=== PATIENT | female | born 1950 | race Hispanic/Latino ===

== ENCOUNTER 2017-06-21 05:59 | Day surgery (SDC) | payer OTHER ==
[2017-06-19 12:27] LABS: BASOPHILS % (AUTO) 1.1 % (0.0-5.0); EOSINOPHILS % (AUTO) 1.6 % (0.0-8.0); LYMPHOCYTES % (AUTO) 24.3 % (21.0-51.0); MEAN CORPUSCULAR HEMOGLOBIN 32.4 pg (27.0-33.0); MEAN CORPUSCULAR HGB CONC 35.7 g/dL (32.0-36.0); MEAN CORPUSCULAR VOLUME 90.8 fL (79-99); MONOCYTES % (AUTO) 7.6 % (3.0-13.0); NEUTROPHILS % (AUTO) 65.4 % (40.0-77.0); PLATELET COUNT (AUTO) 232 K/uL (130-400); RED BLOOD CELL COUNT(AUTO) 3.75 MIL/uL (4.00-5.50); RED CELL DISTRIBUTION WIDTH 13.4 % (11.0-15.5); WHITE BLOOD COUNT (AUTO) 8.4 K/uL (4.8-10.8)
[2017-06-19 12:27] LABS: APPEARANCE,URINE Cloudy (CLEAR); BILIRUBIN,URINE Negative (NEGATIVE); COLOR,URINE Yellow (YELLOW); GLUCOSE, URINE (UA) Negative (NEGATIVE); KETONES,URINE Negative (NEGATIVE); LEUKOCYTE ESTERASE ,URINE Negative (NEGATIVE); NITRATE,URINE Negative (NEGATIVE); OCCULT BLOOD,URINE Negative (NEGATIVE); PROTEIN,URINE Negative (NEGATIVE); UROBILINOGEN,URINE 0.2 mg/dL (0.2-1.0)
[2017-06-19 12:33] LABS: POTASSIUM 4.2 mmol/L (3.5-5.1)
[2017-06-19 12:44] LABS: INR 0.95 (0.85-1.15); PARTIAL THROMBOPLASTIN TIME 25.5 SEC (26.3-35.5)
[2017-06-19 12:47] VITALS: BP 164/72
[2017-06-19 12:54] LABS: BACTERIA,URINE Rare /HPF (None Seen); RBC,URINE 0-1 /HPF (0-1); WBC,URINE 0-1 /HPF (0-1)
[2017-06-19 12:55] LABS: SQUAMOUS EPITHELIAL CELL,UR Few /LPF (0-2)
[~2017-06-21] VITALS: Ht 162.6 cm; Wt 69.2 kg
[2017-06-21] VITALS (12 sets, daily range): BP systolic 136–184; BP diastolic 52–83
[~2017-06-21 05:59] MED LIST: SODIUM CHLORIDE 0.9% 500ML 500 ML IV SCH
[2017-06-21] MEDS ORDERED: ISOVUE-370 50ML VIAL IV ONE (07:22)
[2017-06-21] MEDS ORDERED: NITROGLYCERIN 5 MG/ML 10 ML VIAL IV ONE (07:22)
[2017-06-21] MEDS ORDERED: IOPAMIDOL-370 100 ML VIAL IV ONE (07:22)
[2017-06-21] MEDS ORDERED: HEPARIN SODIUM 1000UNIT/ML 10ML VIAL ONE (07:22)
[2017-06-21] MEDS ORDERED: LIDOCAINE HCL 1% 20 ML VIAL ONE (07:23)
[2017-06-21] MEDS ORDERED: BIVALIRUDIN 250 MG/VIAL IV ONE (07:24)
[2017-06-21] MEDS ORDERED: ROSU40TA28 PO (07:44)
[2017-06-21] MEDS ORDERED: LOSA50TA37 PO (07:44)
[2017-06-21] MEDS ORDERED: FURO-152 PO (07:44)
[2017-06-21] MEDS ORDERED: METF500T6 PO (07:44)
[2017-06-21] MEDS ORDERED: ASPI-555 PO (07:44)
[2017-06-21] MEDS ORDERED: MIDAZOLAM HCL 1 MG/ML 2ML VIAL ONE (08:09)
[2017-06-21] MEDS ORDERED: LABETALOL HCL 5 MG/ML 20ML VIAL IV ONE (08:42)
[2017-06-21] MEDS ORDERED: SODIUM CHLORIDE 0.9% 1000ML 1,000 ML IV SCH (09:02)
[2017-06-21] MEDS ORDERED: ACETAMINOPHEN-CODEINE 300/30MG TAB PO PRN ×2 (09:15)
[2017-06-21] MEDS ORDERED: GLUCAGON 1MG KIT 1 MG ML IM PRN (09:15)
[2017-06-21] MEDS ORDERED: DEXTROSE 50%-WATER 50 ML DISP.SYRIN IV PRN (09:15)
[2017-06-21] MEDS ORDERED: CARV6.2579 PO (09:18)
[2017-06-21] MEDS ORDERED: LABETALOL 20 MG/4 ML DISP.SYRIN IV SCH (10:00)
[2017-06-21] MEDS ORDERED: LABETALOL HCL 5 MG/ML 20ML VIAL IV SCH (10:30)
[2017-06-21] MEDS ORDERED: INSULIN HUMULIN R 100 UNIT/ML 3ML SQ SCH (11:30)
== END 2017-06-21 13:50 | disposition home or self-care (01) ==
LOC: DAH 05:59
PROVIDERS: ATTEND Internal Medicine Cardiovascular Disease
DX: I25.10 Atherosclerotic heart disease of native coronary artery without angina pectoris (principal); Z95.1 Presence of aortocoronary bypass graft; I25.5 Ischemic cardiomyopathy; I34.0 Nonrheumatic mitral (valve) insufficiency; Z79.899 Other long term (current) drug therapy; I44.7 Left bundle-branch block, unspecified; E11.59 Type 2 diabetes mellitus with other circulatory complications; I11.0 Hypertensive heart disease with heart failure; I50.9 Heart failure, unspecified; J44.9 Chronic obstructive pulmonary disease, unspecified; Z90.49 Acquired absence of other specified parts of digestive tract
CPT/HCPCS: 36415; 71045; 80048; 81001; 82948 ×2; 85025; 85610; 85730; 93005; 93459; C1760; C1894; J1644; J3490 ×3; J7030; Q9967 ×2; J0583; J2250

== ENCOUNTER 2017-06-24 22:08 | Inpatient (IN) | payer OTHER ==
[~2017-06-24] VITALS: Ht 162.6 cm; Wt 67.8 kg
[~2017-06-24 22:08] MED LIST changes: +ASPI-555 PO; +CARV6.2579 PO; +FURO-152 PO; +LOSA50TA37 PO; +METF500T6 PO; +ROSU40TA28 PO; -SODIUM CHLORIDE 0.9% 500ML 500 ML IV SCH
[2017-06-24] MEDS ORDERED: ASPIRIN 325 MG TABLET ONE (22:27)
[2017-06-24 22:52] LABS: BASOPHILS % (AUTO) 0.9 % (0.0-5.0); EOSINOPHILS % (AUTO) 2.2 % (0.0-8.0); HEMATOCRIT 31.3 % (36-48); LYMPHOCYTES % (AUTO) 19.3 % (21.0-51.0); MEAN CORPUSCULAR HGB CONC 34.1 g/dL (32.0-36.0); MEAN CORPUSCULAR VOLUME 90.9 fL (79-99); MONOCYTES % (AUTO) 5.7 % (3.0-13.0); NEUTROPHILS % (AUTO) 71.9 % (40.0-77.0); PLATELET COUNT (AUTO) 206 K/uL (130-400); RED BLOOD CELL COUNT(AUTO) 3.45 MIL/uL (4.00-5.50); RED CELL DISTRIBUTION WIDTH 13.5 % (11.0-15.5); WHITE BLOOD COUNT (AUTO) 11.1 K/uL (4.8-10.8)
[2017-06-24 23:02] LABS: CREATININE 0.9 mg/dL (0.5-1.5); POTASSIUM 4.2 mmol/L (3.5-5.1)
[2017-06-24 23:15] LABS: ALBUMIN 3.3 g/dL (3.5-5.0); BILIRUBIN,TOTAL 0.3 mg/dL (0.2-1.0); CREATINE KINASE MB 1.2 ng/mL (0.5-3.6)
[2017-06-24 23:29] LABS: INR 0.95 (0.85-1.15); PARTIAL THROMBOPLASTIN TIME 25.7 SEC (26.3-35.5)
[2017-06-24] MEDS ORDERED: FUROSEMIDE 10 MG/ML 4ML VIAL ONE (23:34)
[2017-06-24] MEDS ORDERED: NITROGLYCERIN 1GM/1 INCH PACKET TD ONE (23:35)
[2017-06-25] MEDS ORDERED: ENOXAPARIN SODIUM 100 MG/1 ML SQ ONE (00:14)
[2017-06-25] MEDS ORDERED: LIDOCAINE HCL-MPF 1% 2ML VIAL IVP PRN (01:00)
[2017-06-25] MEDS ORDERED: POTASSIUM CHLORIDE 10% ELIXIR 20 MEQ/15 ML UDCUP PO PRN (01:00)
[2017-06-25] MEDS ORDERED: POTASSIUM CHLORIDE 20MEQ/100ML 100 ML IV PRN (01:00)
[2017-06-25] MEDS ORDERED: ACETAMINOPHEN 325 MG TAB PO PRN (01:30)
[2017-06-25] MEDS ORDERED: FAMOTIDINE 20MG TAB 20 MG TAB PO SCH (01:30)
[2017-06-25] MEDS ORDERED: ONDANSETRON HCL 4 MG/2 ML VIAL IVP PRN (01:30)
[2017-06-25 04:48] VITALS: BP 147/73
[2017-06-25] MEDS: INSULIN HUMULIN R 100 UNIT/ML 3ML SQ SCH ×4 (06:28→20:47)
[2017-06-25 07:14] LABS: CREATINE KINASE MB 0.6 ng/mL (0.5-3.6); POTASSIUM 3.9 mmol/L (3.5-5.1); TROPONIN I 0.25 ng/mL (0.00-0.06)
[2017-06-25 08:00] VITALS: BP 155/64
[2017-06-25] MEDS: ENOXAPARIN SODIUM 40 MG/0.4 ML SYRINGE SQ SCH ×2 (09:00→16:27)
[2017-06-25] MEDS: METFORMIN HCL 500 MG TABLET PO SCH ×3 (09:00→20:48)
[2017-06-25] MEDS ORDERED: LOSARTAN 50 MG TABLET PO SCH (09:00)
[2017-06-25] MEDS: ASPIRIN 81 MG EC TAB PO SCH (10:00)
[2017-06-25] MEDS: CETIRIZINE HCL 5 MG TABLET PO SCH (10:01)
[2017-06-25] MEDS: CARVEDILOL 6.25 MG TABLET PO SCH ×2 (10:01→20:48)
[2017-06-25 11:30] VITALS: BP 135/67
[2017-06-25] MEDS: FUROSEMIDE 10 MG/ML 4ML VIAL IV SCH (12:37)
[2017-06-25 16:00] VITALS: BP 132/58
[2017-06-25 19:51] VITALS: BP 116/56
[2017-06-25 23:30] VITALS: BP 147/67
[2017-06-26 03:50] VITALS: BP 123/51
[2017-06-26 04:30] LABS: HEMATOCRIT 31.9 % (36-48); MEAN CORPUSCULAR HEMOGLOBIN 31.7 pg (27.0-33.0); MEAN CORPUSCULAR HGB CONC 35.1 g/dL (32.0-36.0); MEAN CORPUSCULAR VOLUME 90.5 fL (79-99); NUCLEATED RED BLOOD CELLS 0.1 % (0.0-0.19); PLATELET COUNT (AUTO) 217 K/uL (130-400); RED BLOOD CELL COUNT(AUTO) 3.53 MIL/uL (4.00-5.50); RED CELL DISTRIBUTION WIDTH 13.4 % (11.0-15.5)
[2017-06-26 04:43] LABS: CREATININE 1.1 mg/dL (0.5-1.5); MAGNESIUM 1.7 mg/dL (1.80-2.40); POTASSIUM 3.8 mmol/L (3.5-5.1)
[2017-06-26] MEDS: POTASSIUM CHLORIDE 20 MEQ ERTAB PO PRN (05:26)
[2017-06-26] MEDS: INSULIN HUMULIN R 100 UNIT/ML 3ML SQ SCH ×4 (06:37→21:00)
[2017-06-26 07:47] VITALS: BP 148/69
[2017-06-26] MEDS ORDERED: ARTIFICAL TEARS SOL 15 ML OD PRN (08:00)
[2017-06-26] MEDS: WATER FOR INJECTION,STERILE 20 ML VIAL IJ SCH (08:30)
[2017-06-26] MEDS: CEFUROXIME SODIUM 1.5 GM VIAL IVP SCH (08:30)
[2017-06-26 08:48] LABS: CHOLESTEROL 176 mg/dL (<200); HDL CHOLESTEROL 63 mg/dL (35-85); LDL DIRECT 103 mg/dL (0-99); TRIGLYCERIDES 126 mg/dL (30-200)
[2017-06-26 08:57] LABS: HEMOGLOBIN A1C 7.2 % (4.0-6.0)
[2017-06-26] MEDS: METFORMIN HCL 500 MG TABLET PO SCH ×3 (09:15→21:07)
[2017-06-26] MEDS: CARVEDILOL 6.25 MG TABLET PO SCH (09:15)
[2017-06-26] MEDS: DIPHENHYDRAMINE HCL 25 MG CAPSULE PO SCH ×2 (09:15→23:38)
[2017-06-26] MEDS: ASPIRIN 81 MG EC TAB PO SCH (09:15)
[2017-06-26] MEDS: CETIRIZINE HCL 5 MG TABLET PO SCH (09:15)
[2017-06-26] MEDS: ENOXAPARIN SODIUM 40 MG/0.4 ML SYRINGE SQ SCH (09:16)
[2017-06-26] MEDS: FUROSEMIDE 10 MG/ML 4ML VIAL IV SCH (09:17)
[2017-06-26 11:36] VITALS: BP 129/58
[2017-06-26] MEDS: LOSARTAN 50 MG TABLET PO SCH (13:22)
[2017-06-26 16:57] VITALS: BP 136/51
[2017-06-26 19:00] VITALS: BP 137/63
[2017-06-27] VITALS (7 sets, daily range): BP systolic 123–141; BP diastolic 55–83
[2017-06-27 04:41] LABS: CREATININE 1.3 mg/dL (0.5-1.5); MAGNESIUM 1.7 mg/dL (1.80-2.40); POTASSIUM 3.7 mmol/L (3.5-5.1)
[2017-06-27 04:47] LABS: INR 0.95 (0.85-1.15); PARTIAL THROMBOPLASTIN TIME 26.5 SEC (26.3-35.5)
[2017-06-27 05:09] LABS: HEMATOCRIT 31.8 % (36-48); MEAN CORPUSCULAR HEMOGLOBIN 32.6 pg (27.0-33.0); MEAN CORPUSCULAR VOLUME 90.5 fL (79-99); PLATELET COUNT (AUTO) 217 K/uL (130-400); RED BLOOD CELL COUNT(AUTO) 3.52 MIL/uL (4.00-5.50); RED CELL DISTRIBUTION WIDTH 13.4 % (11.0-15.5); WHITE BLOOD COUNT (AUTO) 9.8 K/uL (4.8-10.8)
[2017-06-27] MEDS: INSULIN HUMULIN R 100 UNIT/ML 3ML SQ SCH ×4 (06:27→20:34)
[2017-06-27] MEDS ORDERED: CEFUROXIME 1.5GM+NS 100ML 100 ML IV SCH (06:30)
[2017-06-27 06:47] LABS: BAND NEUTROPHILS % (MANUAL) 3 % (0-2); BASOPHILS % (MANUAL) 1 % (0-2); EOSINOPHILS % (MANUAL) 1 % (1-6); LYMPHOCYTES % (MANUAL) 34 % (22-44); MONOCYTES % (MANUAL) 5 % (2-9); REACTIVE LYMPHOCYTES 2 % (0-0); SEGMENTED NEUTROPHILS % 54 % (40-70)
[2017-06-27 06:48] LABS: MAN.DIFF COMMENT-IMPRESSION MANUAL DIFFERENTIAL
[2017-06-27] MEDS: CEFUROXIME SODIUM 1.5 GM VIAL IVP SCH (08:30)
[2017-06-27] MEDS: WATER FOR INJECTION,STERILE 20 ML VIAL IJ SCH (08:30)
[2017-06-27] MEDS: ASPIRIN 81 MG EC TAB PO SCH (11:48)
[2017-06-27] MEDS: LOSARTAN 50 MG TABLET PO SCH (11:50)
[2017-06-27] MEDS: CETIRIZINE HCL 5 MG TABLET PO SCH (11:50)
[2017-06-27] MEDS: METFORMIN HCL 500 MG TABLET PO SCH ×3 (11:50→20:34)
[2017-06-27] MEDS: ENOXAPARIN SODIUM 40 MG/0.4 ML SYRINGE SQ SCH (11:51)
[2017-06-27] MEDS: FUROSEMIDE 10 MG/ML 4ML VIAL IV SCH (11:52)
[2017-06-27] MEDS ORDERED: MAGNESIUM 2GM PREMIX 50ML 50 ML IV SCH (14:30)
[2017-06-27] MEDS: POTASSIUM CHLORIDE 20 MEQ ERTAB PO PRN ×2 (15:59→19:16)
[2017-06-28 03:44] VITALS: BP 127/63
[2017-06-28 04:02] LABS: HEMATOCRIT 34.7 % (36-48); MEAN CORPUSCULAR HEMOGLOBIN 31.5 pg (27.0-33.0); MEAN CORPUSCULAR HGB CONC 34.8 g/dL (32.0-36.0); MEAN CORPUSCULAR VOLUME 90.5 fL (79-99); PLATELET COUNT (AUTO) 225 K/uL (130-400); RED BLOOD CELL COUNT(AUTO) 3.83 MIL/uL (4.00-5.50); RED CELL DISTRIBUTION WIDTH 13.3 % (11.0-15.5)
[2017-06-28 04:25] LABS: ALBUMIN 3.4 g/dL (3.5-5.0); BILIRUBIN,TOTAL 0.3 mg/dL (0.2-1.0); CREATININE 1.2 mg/dL (0.5-1.5); MAGNESIUM 2.3 mg/dL (1.80-2.40); POTASSIUM 4.5 mmol/L (3.5-5.1); TOTAL PROTEIN, SERUM 7.1 g/dL (6.0-8.3)
[2017-06-28] MEDS: INSULIN HUMULIN R 100 UNIT/ML 3ML SQ SCH ×3 (06:31→16:30)
[2017-06-28 08:00] VITALS: BP 123/56
[2017-06-28] MEDS: WATER FOR INJECTION,STERILE 20 ML VIAL IJ SCH (08:30)
[2017-06-28] MEDS: CEFUROXIME SODIUM 1.5 GM VIAL IVP SCH (08:30)
[2017-06-28] MEDS: CETIRIZINE HCL 5 MG TABLET PO SCH (10:21)
[2017-06-28] MEDS: LOSARTAN 50 MG TABLET PO SCH (10:21)
[2017-06-28] MEDS: FUROSEMIDE 10 MG/ML 4ML VIAL IV SCH (10:21)
[2017-06-28] MEDS: METFORMIN HCL 500 MG TABLET PO SCH ×2 (10:21→15:18)
[2017-06-28] MEDS: ASPIRIN 81 MG EC TAB PO SCH (10:21)
[2017-06-28] MEDS: ENOXAPARIN SODIUM 40 MG/0.4 ML SYRINGE SQ SCH (10:22)
[2017-06-28 12:00] VITALS: BP 118/54
[2017-06-28 16:00] VITALS: BP 129/65
[2017-06-28] MEDS ORDERED: CIPR-245 PO (16:06)
[2017-06-28] MEDS ORDERED: FURO40TA7 PO (16:06)
== END 2017-06-28 19:20 | disposition home or self-care (01) | DRG 291 ==
LOC: EDH 22:08 → EDHIP 23:53 → 2AH 06-25 04:38
PROVIDERS: ADMIT Internal Medicine Nephrology; ATTEND Internal Medicine Nephrology
DX: I11.0 Hypertensive heart disease with heart failure (principal); J96.00 Acute respiratory failure, unspecified whether with hypoxia or hypercapnia; K55.1 Chronic vascular disorders of intestine; E11.9 Type 2 diabetes mellitus without complications; E78.5 Hyperlipidemia, unspecified; F17.200 Nicotine dependence, unspecified, uncomplicated; I25.110 Atherosclerotic heart disease of native coronary artery with unstable angina pectoris; I25.5 Ischemic cardiomyopathy; I50.23 Acute on chronic systolic (congestive) heart failure; J44.9 Chronic obstructive pulmonary disease, unspecified; I44.7 Left bundle-branch block, unspecified; Z79.84 Long term (current) use of oral hypoglycemic drugs; Z79.899 Other long term (current) drug therapy; Z82.49 Family history of ischemic heart disease and other diseases of the circulatory system; Z88.8 Allergy status to other drugs, medicaments and biological substances
CPT/HCPCS: 36415; 71045; 74150; 76705; 80048; 80053; 80061; 81001; 82150; 82550; 82553; 82948; 83036; 83690; 83735; 83874; 83880; 84484; 85025; 85027; 85610; 85730; 86850; 86900; 86901; 86922; 93005; 93459; 93880; 94010; 99291; C1760; C1894; J0583; J1644; J1650; J1940; J2250; J3475; J3480; J3490; J7030; Q0163; Q9967

== ENCOUNTER 2017-07-02 06:24 | Inpatient (IN) | payer OTHER ==
[2017-07-01 12:15] LABS: BASOPHILS % (AUTO) 0.9 % (0.0-5.0); EOSINOPHILS % (AUTO) 2.9 % (0.0-8.0); LYMPHOCYTES % (AUTO) 19.9 % (21.0-51.0); MEAN CORPUSCULAR HEMOGLOBIN 31.3 pg (27.0-33.0); MEAN CORPUSCULAR HGB CONC 34.9 g/dL (32.0-36.0); MEAN CORPUSCULAR VOLUME 89.9 fL (79-99); MONOCYTES % (AUTO) 7.4 % (3.0-13.0); NEUTROPHILS % (AUTO) 68.9 % (40.0-77.0); PLATELET COUNT (AUTO) 270 K/uL (130-400); RED BLOOD CELL COUNT(AUTO) 3.89 MIL/uL (4.00-5.50); RED CELL DISTRIBUTION WIDTH 13.3 % (11.0-15.5); WHITE BLOOD COUNT (AUTO) 8.1 K/uL (4.8-10.8)
[2017-07-01 12:25] VITALS: BP 145/62
[2017-07-01 12:26] LABS: INR 0.98 (0.85-1.15); PARTIAL THROMBOPLASTIN TIME 26.3 SEC (26.3-35.5); PROTHROMBIN TIME 10.3 SEC (9.6-11.6)
[2017-07-01 12:29] LABS: ALBUMIN 3.9 g/dL (3.5-5.0); BILIRUBIN,TOTAL 0.3 mg/dL (0.2-1.0); CREATININE 1.5 mg/dL (0.5-1.5); POTASSIUM 4.3 mmol/L (3.5-5.1); TOTAL PROTEIN, SERUM 8.1 g/dL (6.0-8.3)
[2017-07-01] MEDS: CEFUROXIME SODIUM 1.5 GM VIAL IVP SCH (14:00)
[2017-07-02] VITALS (12 sets, daily range): BP systolic 86–155; BP diastolic 38–73
[~2017-07-02] VITALS: Ht 162.6 cm; Wt 74.7 kg
[~2017-07-02 06:24] MED LIST changes: -CARV6.2579 PO; +CIPR-245 PO; -FURO-152 PO; +FURO40TA7 PO; +WATER FOR INJECTION,STERILE 20 ML VIAL IJ SCH
[2017-07-02] MEDS ORDERED: SODIUM CHLORIDE 0.9% 1000ML 1,000 ML IV ONE ×2 (07:32→14:26)
[2017-07-02] MEDS ORDERED: PAPAVERINE HCL 30 MG/ML 2ML VIAL ONE (09:27)
[2017-07-02] MEDS ORDERED: OCTYL 2-CYANOACRYLATE 1 EACH TP ONE (09:27)
[2017-07-02] MEDS ORDERED: BACITRACIN 50,000 UNIT VIAL ONE (09:28)
[2017-07-02] MEDS ORDERED: ROCURONIUM BROMIDE 10MG/1ML 5ML VL ONE ×3 (09:35→15:03)
[2017-07-02] MEDS ORDERED: NITROGLYCERIN 50 MG/D5% WATER 1 BOT ONE (09:35)
[2017-07-02] MEDS ORDERED: EPINEPHRINE 1 MG/ML AMPULE ONE (10:25)
[2017-07-02] MEDS ORDERED: HEPARIN SODIUM 1000UNIT/ML 10ML VIAL ONE ×2 (10:25→10:41)
[2017-07-02] MEDS ORDERED: LIDOCAINE PF 2% 5ML ABBOJECT ONE (10:25)
[2017-07-02] MEDS ORDERED: PROTAMINE SULFATE 10 MG/ML 25ML VIAL IV ONE (10:25)
[2017-07-02] MEDS ORDERED: GLYCOPYRROLATE 0.2 MG/ML 5 ML VIAL ONE (10:25)
[2017-07-02] MEDS ORDERED: ESMOLOL HCL 10 MG/ML 10 ML VIAL ONE (10:25)
[2017-07-02] MEDS ORDERED: MILRINONE-D5W 20 MG/100 ML 100 ML IV ONE (10:25)
[2017-07-02] MEDS ORDERED: KETAMINE 50MG/ML SYRINGE 50 MG/ML DISP.SYRIN IV ONE (10:26)
[2017-07-02] MEDS ORDERED: AMINOCAPROIC ACID 250 MG/ML 20 ML VIAL IV ONE (10:26)
[2017-07-02] MEDS ORDERED: NOREPINEPHRINE BITARTRATE 1 MG/1 ML ML IV ONE (10:26)
[2017-07-02] MEDS ORDERED: PROPOFOL 10 MG/ML 20ML VIAL IV ONE (10:26)
[2017-07-02] MEDS ORDERED: MIDAZOLAM HCL 1 MG/ML 5ML VIAL ONE (10:26)
[2017-07-02] MEDS ORDERED: FENTANYL CITRATE PF 50 MCG/1 ML 5ML AMP IV ONE ×2 (10:29)
[2017-07-02] MEDS ORDERED: THROMBIN-JMI 5000 UNIT/VIAL TP ONE (10:40)
[2017-07-02] MEDS: CEFUROXIME SODIUM 1.5 GM VIAL IVP SCH (10:45)
[2017-07-02 10:56] LABS: ABG BASE EXCESS -1.9 mmol/L (-2.0-3.0); ABG HCO3 21.3 mmol/L (21.0-28.0); ABG OXYGEN SATURATION 98.7 % (95.0-99.0); ABG PCO2 31 mmHg (32-45)
[2017-07-02] MEDS ORDERED: FENTANYL CITRATE PF 50 MCG/1 ML 2ML VIAL ONE ×2 (11:14)
[2017-07-02 12:43] LABS: ABG BASE EXCESS -5.8 mmol/L (-2.0-3.0); ABG HCO3 19.3 mmol/L (21.0-28.0); ABG OXYGEN SATURATION 98.8 % (95.0-99.0); ABG PCO2 37 mmHg (32-45)
[2017-07-02] MEDS ORDERED: SODIUM BICARB 50MEQ 50ML VIAL ONE (12:44)
[2017-07-02] MEDS ORDERED: CEFUROXIME SODIUM 1.5 GM VIAL ONE (13:31)
[2017-07-02 13:49] LABS: ABG BASE EXCESS -4.8 mmol/L (-2.0-3.0); ABG HCO3 19.6 mmol/L (21.0-28.0); ABG OXYGEN SATURATION 98.9 % (95.0-99.0); ABG PCO2 34 mmHg (32-45)
[2017-07-02] MEDS ORDERED: SODIUM CHLORIDE 0.9% 500ML 500 ML IV SCH (14:43)
[2017-07-02] MEDS ORDERED: SODIUM CHLORIDE 0.9% 250 ML IV PRN (14:45)
[2017-07-02] MEDS ORDERED: ONDANSETRON HCL MDV 20ML 2 MG/ML VIAL IV PRN (14:45)
[2017-07-02] MEDS ORDERED: DEXTROSE 50%-WATER 50 ML DISP.SYRIN IV PRN (14:45)
[2017-07-02] MEDS ORDERED: CALCIUM GLUCONATE 1 GM in SODIUM CHLORIDE 0.9% 50 ML IV PRN (14:45)
[2017-07-02] MEDS ORDERED: ALBUMIN (HUMAN) 5% 250 ML IV PRN (14:45)
[2017-07-02] MEDS ORDERED: SODIUM CHLORIDE 0.9% 1000ML 1,000 ML IV SCH (14:45)
[2017-07-02] MEDS ORDERED: MORPHINE SULFATE 2 MG/ML 1ML SYG IV PRN (14:45)
[2017-07-02] MEDS ORDERED: GLUCAGON 1MG KIT 1 MG ML IM PRN (14:45)
[2017-07-02] MEDS ORDERED: NOREPINEPHRINE 4MG/NS 250ML 250 ML IV PRN (14:45)
[2017-07-02] MEDS ORDERED: PROPOFOL 1000 MG/100 ML 100 ML IV PRN (14:45)
[2017-07-02] MEDS ORDERED: NITROGLYCERIN 50 MG/D5% WATER 250 BOT IV SCH (14:45)
[2017-07-02] MEDS ORDERED: EPINEPHRINE 2 MG in SODIUM CHLORIDE 0.9% 250 ML IV PRN (14:45)
[2017-07-02] MEDS ORDERED: ACETAMINOPHEN 650 MG SUPPOSITORY RC PRN (14:45)
[2017-07-02] MEDS ORDERED: ACETAMINOPHEN 325 MG TAB PO PRN (14:45)
[2017-07-02] MEDS ORDERED: POTASSIUM PHOS 15 mMOL+NS250ML 250 ML IV PRN (14:45)
[2017-07-02] MEDS ORDERED: SODIUM CHLORIDE 0.9% 10 ML VIAL IVP PRN (14:45)
[2017-07-02] MEDS ORDERED: MORPHINE SULFATE 4 MG/1ML SYG IV PRN (14:45)
[2017-07-02] MEDS ORDERED: SODIUM BICARB 50MEQ 50ML VIAL IV PRN (14:45)
[2017-07-02 14:57] LABS: ABG HCO3 18.2 mmol/L (21.0-28.0); ABG OXYGEN SATURATION 98.5 % (95.0-99.0); ABG PCO2 40 mmHg (32-45)
[2017-07-02] MEDS ORDERED: SODIUM BICARB 8.4% 50ML SYRINGE ONE (14:57)
[2017-07-02 15:43] LABS: ABG BASE EXCESS -1.5 mmol/L (-2.0-3.0); ABG HCO3 23.1 mmol/L (21.0-28.0); ABG OXYGEN SATURATION 98.4 % (95.0-99.0); ABG PCO2 38 mmHg (32-45)
[2017-07-02 15:48] LABS: HEMATOCRIT 27.6 % (36-48); MEAN CORPUSCULAR HEMOGLOBIN 30.5 pg (27.0-33.0); MEAN CORPUSCULAR HGB CONC 33.9 g/dL (32.0-36.0); PLATELET COUNT (AUTO) 203 K/uL (130-400); RED BLOOD CELL COUNT(AUTO) 3.07 MIL/uL (4.00-5.50); RED CELL DISTRIBUTION WIDTH 13.4 % (11.0-15.5); WHITE BLOOD COUNT (AUTO) 24.9 K/uL (4.8-10.8)
[2017-07-02 16:00] LABS: CREATININE 1.2 mg/dL (0.5-1.5); MAGNESIUM 1.3 mg/dL (1.80-2.40); PHOSPHORUS 4.6 mg/dL (2.5-4.9); POTASSIUM 3.3 mmol/L (3.5-5.1)
[2017-07-02] MEDS: POTASSIUM CHLORIDE 20MEQ/100ML 100 ML IV PRN ×2 (16:18→17:32)
[2017-07-02] MEDS: INSULIN REGULAR, HUMAN 3ML 100 UNIT in SODIUM CHLORIDE 0.9% 99 ML IV SCH ×2 (16:29)
[2017-07-02] MEDS: MAGNESIUM 2GM PREMIX 50ML 50 ML IV PRN (17:35)
[2017-07-02 20:19] LABS: ABG BASE EXCESS 3.2 mmol/L (-2.0-3.0); ABG HCO3 26.8 mmol/L (21.0-28.0); ABG OXYGEN SATURATION 98.1 % (95.0-99.0); ABG PCO2 37 mmHg (32-45)
[2017-07-02 20:56] LABS: CREATININE 1.3 mg/dL (0.5-1.5)
[2017-07-02] MEDS ORDERED: CEFUROXIME 1.5GM+NS 100ML 100 ML IV SCH (22:45)
[2017-07-02 22:53] LABS: ABG BASE EXCESS 4.1 mmol/L (-2.0-3.0); ABG HCO3 28.2 mmol/L (21.0-28.0); ABG OXYGEN SATURATION 98.9 % (95.0-99.0); ABG PCO2 40 mmHg (32-45)
[2017-07-03] VITALS (24 sets, daily range): BP systolic 89–143; BP diastolic 32–66
[2017-07-03 01:00] LABS: ABG BASE EXCESS 4.1 mmol/L (-2.0-3.0); ABG HCO3 29.3 mmol/L (21.0-28.0); ABG OXYGEN SATURATION 98.1 % (95.0-99.0); ABG PCO2 45 mmHg (32-45)
[2017-07-03] MEDS: CEFUROXIME SODIUM 1.5 GM VIAL IVP SCH ×2 (02:34→13:58)
[2017-07-03 04:48] LABS: HEMATOCRIT 24.7 % (36-48); MEAN CORPUSCULAR HEMOGLOBIN 32.2 pg (27.0-33.0); MEAN CORPUSCULAR HGB CONC 35.9 g/dL (32.0-36.0); MEAN CORPUSCULAR VOLUME 89.5 fL (79-99); PLATELET COUNT (AUTO) 180 K/uL (130-400); RED BLOOD CELL COUNT(AUTO) 2.76 MIL/uL (4.00-5.50); RED CELL DISTRIBUTION WIDTH 13.6 % (11.0-15.5); WHITE BLOOD COUNT (AUTO) 13.5 K/uL (4.8-10.8)
[2017-07-03 05:10] LABS: CREATININE 1.2 mg/dL (0.5-1.5); MAGNESIUM 1.8 mg/dL (1.80-2.40); PHOSPHORUS 3.1 mg/dL (2.5-4.9); POTASSIUM 3.8 mmol/L (3.5-5.1)
[2017-07-03] MEDS: POTASSIUM CHLORIDE 20MEQ/100ML 100 ML IV PRN ×2 (05:48→22:21)
[2017-07-03] MEDS: MAGNESIUM 2GM PREMIX 50ML 50 ML IV PRN (05:49)
[2017-07-03] MEDS: HYDROCODONE/ACETAMINOPHEN 5/325 MG TAB PO PRN ×3 (06:58→22:15)
[2017-07-03] MEDS: PANTOPRAZOLE SODIUM 40 MG TABLET.DR PO SCH (08:24)
[2017-07-03] MEDS ORDERED: LOSA25TA21 PO (09:30)
[2017-07-03] MEDS: SPIRONOLACTONE 25 MG TAB PO SCH ×2 (10:12→20:26)
[2017-07-03] MEDS: ATORVASTATIN CALCIUM 40 MG TABLET PO SCH (12:15)
[2017-07-03] MEDS: FUROSEMIDE 20 MG TABLET PO SCH ×2 (13:58→16:19)
[2017-07-03] MEDS: INSULIN REGULAR, HUMAN 3ML 100 UNIT in SODIUM CHLORIDE 0.9% 99 ML IV SCH ×2 (20:15)
[2017-07-03] MEDS: METOPROLOL TARTRATE 25 MG TAB PO SCH (20:26)
[2017-07-03] MEDS ORDERED: FUROSEMIDE 10 MG/ML 4ML VIAL IV SCH (21:30)
[2017-07-03 21:48] LABS: CREATININE 1.1 mg/dL (0.5-1.5); POTASSIUM 3.6 mmol/L (3.5-5.1)
[2017-07-04] VITALS (14 sets, daily range): BP systolic 90–125; BP diastolic 41–77
[2017-07-04] MEDS: POTASSIUM CHLORIDE 20MEQ/100ML 100 ML IV PRN (00:19)
[2017-07-04] MEDS: CEFUROXIME SODIUM 1.5 GM VIAL IVP SCH (02:54)
[2017-07-04 03:58] LABS: HEMATOCRIT 26.2 % (36-48); MEAN CORPUSCULAR HEMOGLOBIN 31.1 pg (27.0-33.0); MEAN CORPUSCULAR VOLUME 91.4 fL (79-99); PLATELET COUNT (AUTO) 162 K/uL (130-400); RED BLOOD CELL COUNT(AUTO) 2.87 MIL/uL (4.00-5.50); RED CELL DISTRIBUTION WIDTH 13.7 % (11.0-15.5); WHITE BLOOD COUNT (AUTO) 17.6 K/uL (4.8-10.8)
[2017-07-04] MEDS: HYDROCODONE/ACETAMINOPHEN 5/325 MG TAB PO PRN ×2 (04:02→08:59)
[2017-07-04 04:10] LABS: CREATININE 1.4 mg/dL (0.5-1.5); PHOSPHORUS 3.4 mg/dL (2.5-4.9); POTASSIUM 4.9 mmol/L (3.5-5.1)
[2017-07-04] MEDS: INSULIN HUMULIN R 100 UNIT/ML 3ML SQ SCH ×4 (07:30→21:00)
[2017-07-04] MEDS: ASPIRIN 81 MG EC TAB PO SCH (08:51)
[2017-07-04] MEDS: SPIRONOLACTONE 25 MG TAB PO SCH ×2 (08:51→20:23)
[2017-07-04] MEDS: FUROSEMIDE 20 MG TABLET PO SCH ×2 (08:51→16:35)
[2017-07-04] MEDS: PANTOPRAZOLE SODIUM 40 MG TABLET.DR PO SCH (08:51)
[2017-07-04] MEDS ORDERED: LOSARTAN 50 MG TABLET PO SCH (09:00)
[2017-07-04] MEDS: CALCIUM GLUCONATE 1 GM in SODIUM CHLORIDE 0.9% 50 ML IV SCH (09:40)
[2017-07-04] MEDS: IPRATROPIUM/ALBUTEROL SULFATE 3 ML SOLUTION IH SCH ×3 (11:35→23:35)
[2017-07-04] MEDS: ATORVASTATIN CALCIUM 40 MG TABLET PO SCH (12:23)
[2017-07-04] MEDS: SIMETHICONE 80 MG TAB.CHEW PO SCH ×2 (12:24→16:34)
[2017-07-04] MEDS: TRAMADOL HCL 50 MG TABLET PO PRN (12:49)
[2017-07-04] MEDS: METOPROLOL TARTRATE 25 MG TAB PO SCH (20:23)
[2017-07-05] MEDS: HYDROCODONE/ACETAMINOPHEN 5/325 MG TAB PO PRN ×2 (03:32→15:30)
[2017-07-05 03:33] LABS: HEMATOCRIT 24.9 % (36-48); MEAN CORPUSCULAR HEMOGLOBIN 31.9 pg (27.0-33.0); MEAN CORPUSCULAR HGB CONC 34.8 g/dL (32.0-36.0); MEAN CORPUSCULAR VOLUME 91.7 fL (79-99); PLATELET COUNT (AUTO) 157 K/uL (130-400); RED BLOOD CELL COUNT(AUTO) 2.71 MIL/uL (4.00-5.50); RED CELL DISTRIBUTION WIDTH 13.8 % (11.0-15.5); WHITE BLOOD COUNT (AUTO) 16.6 K/uL (4.8-10.8)
[2017-07-05 03:48] LABS: CREATININE 1.6 mg/dL (0.5-1.5); POTASSIUM 4.2 mmol/L (3.5-5.1)
[2017-07-05 03:53] VITALS: BP 117/54
[2017-07-05] MEDS: INSULIN HUMULIN R 100 UNIT/ML 3ML SQ SCH ×5 (05:51→20:40)
[2017-07-05] MEDS: IPRATROPIUM/ALBUTEROL SULFATE 3 ML SOLUTION IH SCH ×3 (06:36→18:37)
[2017-07-05 07:17] VITALS: BP 94/51
[2017-07-05] MEDS: FUROSEMIDE 20 MG TABLET PO SCH (08:04)
[2017-07-05] MEDS: SIMETHICONE 80 MG TAB.CHEW PO SCH ×3 (08:04→18:00)
[2017-07-05] MEDS: ASPIRIN 81 MG EC TAB PO SCH (08:04)
[2017-07-05] MEDS: PANTOPRAZOLE SODIUM 40 MG TABLET.DR PO SCH (08:05)
[2017-07-05] MEDS: SPIRONOLACTONE 25 MG TAB PO SCH (08:05)
[2017-07-05] MEDS: ENOXAPARIN SODIUM 30 MG/0.3 ML SQ SCH (08:06)
[2017-07-05] MEDS: CALCIUM GLUCONATE 1 GM in SODIUM CHLORIDE 0.9% 50 ML IV SCH (10:31)
[2017-07-05] MEDS: INSULIN GLARGINE 100 UNITS/ML 10 ML VIAL SQ SCH ×2 (10:35→20:14)
[2017-07-05 11:16] VITALS: BP 96/52
[2017-07-05] MEDS: ATORVASTATIN CALCIUM 40 MG TABLET PO SCH (12:10)
[2017-07-05 16:18] VITALS: BP 124/68
[2017-07-05] MEDS: METOPROLOL TARTRATE 25 MG TAB PO SCH (20:11)
[2017-07-05 20:54] VITALS: BP 112/59
[2017-07-06] VITALS (7 sets, daily range): BP systolic 96–138; BP diastolic 52–66
[2017-07-06] MEDS: IPRATROPIUM/ALBUTEROL SULFATE 3 ML SOLUTION IH SCH ×5 (00:01→23:43)
[2017-07-06] MEDS: HYDROCODONE/ACETAMINOPHEN 5/325 MG TAB PO PRN ×2 (02:25→20:08)
[2017-07-06 03:51] LABS: HEMATOCRIT 24.6 % (36-48); MEAN CORPUSCULAR HEMOGLOBIN 30.6 pg (27.0-33.0); MEAN CORPUSCULAR HGB CONC 33.7 g/dL (32.0-36.0); MEAN CORPUSCULAR VOLUME 90.9 fL (79-99); PLATELET COUNT (AUTO) 177 K/uL (130-400); RED CELL DISTRIBUTION WIDTH 13.5 % (11.0-15.5); WHITE BLOOD COUNT (AUTO) 14.4 K/uL (4.8-10.8)
[2017-07-06 04:05] LABS: CREATININE 1.3 mg/dL (0.5-1.5)
[2017-07-06] MEDS: INSULIN HUMULIN R 100 UNIT/ML 3ML SQ SCH ×4 (06:15→21:23)
[2017-07-06] MEDS: SPIRONOLACTONE 25 MG TAB PO SCH (07:58)
[2017-07-06] MEDS: PANTOPRAZOLE SODIUM 40 MG TABLET.DR PO SCH (07:58)
[2017-07-06] MEDS: ENOXAPARIN SODIUM 30 MG/0.3 ML SQ SCH (07:59)
[2017-07-06] MEDS: ASPIRIN 81 MG EC TAB PO SCH (07:59)
[2017-07-06] MEDS: METOPROLOL TARTRATE 25 MG TAB PO SCH ×2 (07:59→20:07)
[2017-07-06] MEDS: FUROSEMIDE 20 MG TABLET PO SCH (07:59)
[2017-07-06] MEDS: SIMETHICONE 80 MG TAB.CHEW PO SCH ×3 (08:00→18:42)
[2017-07-06] MEDS: ATORVASTATIN CALCIUM 40 MG TABLET PO SCH (11:34)
[2017-07-06] MEDS: INSULIN GLARGINE 100 UNITS/ML 10 ML VIAL SQ SCH (21:24)
[2017-07-07 03:38] VITALS: BP 116/66
[2017-07-07] MEDS: IPRATROPIUM/ALBUTEROL SULFATE 3 ML SOLUTION IH SCH (06:07)
[2017-07-07] MEDS: INSULIN HUMULIN R 100 UNIT/ML 3ML SQ SCH (06:16)
[2017-07-07 07:20] VITALS: BP 121/59
[2017-07-07] MEDS: ENOXAPARIN SODIUM 30 MG/0.3 ML SQ SCH (07:53)
[2017-07-07] MEDS ORDERED: METO25 PO (07:54)
[2017-07-07] MEDS ORDERED: TRAM50TA4 PO (07:54)
[2017-07-07] MEDS ORDERED: SPIR25TA PO (07:54)
[2017-07-07] MEDS: PANTOPRAZOLE SODIUM 40 MG TABLET.DR PO SCH (07:56)
[2017-07-07] MEDS: ASPIRIN 81 MG EC TAB PO SCH (07:56)
[2017-07-07] MEDS: FUROSEMIDE 20 MG TABLET PO SCH (07:56)
[2017-07-07] MEDS: SPIRONOLACTONE 25 MG TAB PO SCH (07:56)
[2017-07-07] MEDS: METOPROLOL TARTRATE 25 MG TAB PO SCH (07:56)
[2017-07-07] MEDS: SIMETHICONE 80 MG TAB.CHEW PO SCH (07:56)
[2017-07-07] MEDS: TRAMADOL HCL 50 MG TABLET PO PRN (08:50)
[2017-07-07] MEDS ORDERED: FUROSEMIDE 20 MG TABLET PO SCH (09:00)
== END 2017-07-07 11:40 | disposition home health service (06) | DRG 235 ==
LOC: DAHIP 06:24 → 2CV 14:31 → 2CH 07-03 05:17 → 2DH 07-05 15:08
PROVIDERS: ADMIT Family Medicine; ATTEND Family Medicine
PROC: 021109W Bypass Coronary Artery, Two Arteries from Aorta with Autologous Venous Tissue, Open Approach (ICD-10-PCS; principal; 2017-07-02 10:29)
PROC: 02100Z8 Bypass Coronary Artery, One Artery from Right Internal Mammary, Open Approach (ICD-10-PCS; 2017-07-02 10:29)
PROC: 06BQ4ZZ Excision of Left Saphenous Vein, Percutaneous Endoscopic Approach (ICD-10-PCS; 2017-07-02 10:29)
DX: I25.119 Atherosclerotic heart disease of native coronary artery with unspecified angina pectoris (principal); I50.43 Acute on chronic combined systolic (congestive) and diastolic (congestive) heart failure; D62 Acute posthemorrhagic anemia; D72.829 Elevated white blood cell count, unspecified; E11.9 Type 2 diabetes mellitus without complications; E78.5 Hyperlipidemia, unspecified; I50.42 Chronic combined systolic (congestive) and diastolic (congestive) heart failure; I11.0 Hypertensive heart disease with heart failure; J44.9 Chronic obstructive pulmonary disease, unspecified; I25.5 Ischemic cardiomyopathy; I44.7 Left bundle-branch block, unspecified; Z79.4 Long term (current) use of insulin; Z82.49 Family history of ischemic heart disease and other diseases of the circulatory system; Z83.3 Family history of diabetes mellitus; Z87.891 Personal history of nicotine dependence; Z95.1 Presence of aortocoronary bypass graft
CPT/HCPCS: 36415; 36600; 71045; 80048; 80053; 82330; 82435; 82803; 82947; 82948; 83605; 83735; 84100; 84132; 84295; 85018; 85025; 85027; 85347; 85610; 85730; 86850; 86900; 86901; 86922; 94002; 94150; 94640; 94664; 97039; A4218; A7048; J0171; J0610; J0697; J1644; J1650; J1815; J1940; J2001; J2250; J2260; J2440; J2704; J2720; J3010; J3475; J3480; J3490; J7030; J7040; J7120; P9045

== ENCOUNTER → 2017-11-28 | Outpatient (CLI) | payer OTHER ==
[~2017-11-28] VITALS: Ht 162.6 cm; Wt 69.5 kg
[~2017-11-28] MED LIST changes: -CIPR-245 PO; +LOSA50TA25 PO; -LOSA50TA37 PO; +METF-444 PO; -METF500T6 PO; +METO-408 PO; +METO25 PO; +ROSU40TA20 PO; -ROSU40TA28 PO; +SPIR25TA PO; +TRAM50TA4 PO; -WATER FOR INJECTION,STERILE 20 ML VIAL IJ SCH
[2017-11-28 09:15] VITALS: BP 110/55
[2017-11-28 09:34] LABS: BASOPHILS % (AUTO) 1.2 % (0.0-5.0); EOSINOPHILS % (AUTO) 3.3 % (0.0-8.0); HEMATOCRIT 33.7 % (36-48); LYMPHOCYTES % (AUTO) 17.2 % (21.0-51.0); MEAN CORPUSCULAR HEMOGLOBIN 29.9 pg (27.0-33.0); MEAN CORPUSCULAR HGB CONC 34.1 g/dL (32.0-36.0); MEAN CORPUSCULAR VOLUME 87.6 fL (79-99); MONOCYTES % (AUTO) 5.7 % (3.0-13.0); NEUTROPHILS % (AUTO) 72.6 % (40.0-77.0); PLATELET COUNT (AUTO) 180 K/uL (130-400); RED BLOOD CELL COUNT(AUTO) 3.85 MIL/uL (4.00-5.50); RED CELL DISTRIBUTION WIDTH 13.5 % (11.0-15.5); WHITE BLOOD COUNT (AUTO) 8.7 K/uL (4.8-10.8)
[2017-11-28 09:41] LABS: CREATININE 1.4 mg/dL (0.5-1.5); POTASSIUM 4.2 mmol/L (3.5-5.1)
[2017-11-28 09:56] LABS: INR 0.97 (0.85-1.15); PROTHROMBIN TIME 10.2 SEC (9.6-11.6)
== END | disposition home or self-care (01) ==
LOC: EDSTATUS 09:00 → DAH 10:00
PROVIDERS: ATTEND Internal Medicine Cardiovascular Disease
DX: I25.5 Ischemic cardiomyopathy (principal); I11.0 Hypertensive heart disease with heart failure; I50.22 Chronic systolic (congestive) heart failure; I25.10 Atherosclerotic heart disease of native coronary artery without angina pectoris; J44.9 Chronic obstructive pulmonary disease, unspecified; E78.5 Hyperlipidemia, unspecified
CPT/HCPCS: 36415; 80048; 85025; 85610; 85730

== ENCOUNTER → 2017-12-18 | Outpatient (CLI) | payer OTHER ==
[~2017-12-18] VITALS: Ht 160 cm; Wt 70.2 kg
[~2017-12-18] MED LIST changes: -LOSA50TA25 PO; -METO-408 PO
[2017-12-18 10:38] LABS: BASOPHILS % (AUTO) 0.6 % (0.0-5.0); EOSINOPHILS % (AUTO) 3.1 % (0.0-8.0); HEMATOCRIT 31.9 % (36-48); LYMPHOCYTES % (AUTO) 29.5 % (21.0-51.0); MEAN CORPUSCULAR HGB CONC 34.3 g/dL (32.0-36.0); MEAN CORPUSCULAR VOLUME 87.3 fL (79-99); MONOCYTES % (AUTO) 6.7 % (3.0-13.0); NEUTROPHILS % (AUTO) 60.1 % (40.0-77.0); PLATELET COUNT (AUTO) 175 K/uL (130-400); RED BLOOD CELL COUNT(AUTO) 3.65 MIL/uL (4.00-5.50); RED CELL DISTRIBUTION WIDTH 13.6 % (11.0-15.5); WHITE BLOOD COUNT (AUTO) 7.1 K/uL (4.8-10.8)
[2017-12-18 10:45] VITALS: BP 108/47
[2017-12-18 10:45] LABS: CREATININE 1.5 mg/dL (0.5-1.5)
[2017-12-18 10:49] LABS: INR 0.99 (0.85-1.15); PROTHROMBIN TIME 10.4 SEC (9.6-11.6)
== END | disposition home or self-care (01) ==
LOC: DAH 10:00 → EDSTATUS 12-20 08:00
PROVIDERS: ATTEND Internal Medicine Cardiovascular Disease
DX: I25.5 Ischemic cardiomyopathy (principal); I11.0 Hypertensive heart disease with heart failure; I50.22 Chronic systolic (congestive) heart failure; I25.10 Atherosclerotic heart disease of native coronary artery without angina pectoris; J44.9 Chronic obstructive pulmonary disease, unspecified; E78.5 Hyperlipidemia, unspecified
CPT/HCPCS: 36415; 80048; 85025; 85610; 85730

== ENCOUNTER 2018-01-08 05:49 | Observation (INO) | payer OTHER ==
[2018-01-07 09:16] LABS: BASOPHILS % (AUTO) 1.1 % (0.0-5.0); EOSINOPHILS % (AUTO) 3.2 % (0.0-8.0); HEMATOCRIT 32.7 % (36-48); MEAN CORPUSCULAR HEMOGLOBIN 29.6 pg (27.0-33.0); MONOCYTES % (AUTO) 6.3 % (3.0-13.0); NEUTROPHILS % (AUTO) 64.4 % (40.0-77.0); PLATELET COUNT (AUTO) 150 K/uL (130-400); RED BLOOD CELL COUNT(AUTO) 3.76 MIL/uL (4.00-5.50); RED CELL DISTRIBUTION WIDTH 13.8 % (11.0-15.5); WHITE BLOOD COUNT (AUTO) 8.3 K/uL (4.8-10.8)
[2018-01-07 09:17] VITALS: BP 94/53
[2018-01-07 09:25] LABS: CREATININE 1.5 mg/dL (0.5-1.5); POTASSIUM 4.2 mmol/L (3.5-5.1)
[2018-01-07 09:49] LABS: INR 0.96 (0.85-1.15); PARTIAL THROMBOPLASTIN TIME 26.7 SEC (26.3-35.5); PROTHROMBIN TIME 10.1 SEC (9.6-11.6)
[~2018-01-08] VITALS: Ht 162.6 cm; Wt 68.4 kg
[2018-01-08] VITALS (16 sets, daily range): BP systolic 112–143; BP diastolic 45–75
[~2018-01-08 05:49] MED LIST changes: +CEFAZOLIN SODIUM 1 GM VIAL IVP SCH; +LOSA50TA25 PO; -METF-444 PO; +METO-408 PO; -METO25 PO; +PHARMACY COMMUNICATION MISC SCH; +SODIUM CHLORIDE 0.9% 500ML 500 ML IV SCH; -TRAM50TA4 PO
[2018-01-08] MEDS ORDERED: SODIUM CHLORIDE 0.9% 1000ML 1,000 ML IV ONE (06:23)
[2018-01-08] MEDS ORDERED: BUPIVACAINE/PF 0.25% 50ML VIAL IJ ONE (17:44)
[2018-01-08] MEDS ORDERED: MIDAZOLAM HCL 1 MG/ML 2ML VIAL ONE (17:44)
[2018-01-08] MEDS ORDERED: MEPERIDINE-PF 25 MG/ML SYG ONE (17:44)
[2018-01-08] MEDS ORDERED: LIDOCAINE HCL 1% MDV 50ML VIAL ONE (17:44)
[2018-01-08] MEDS ORDERED: CEFAZOLIN SODIUM 1 GM VIAL ONE ×2 (17:45→17:49)
[2018-01-08] MEDS ORDERED: IODIXANOL 320 MG/ML 100 ML VIAL ONE (18:00)
[2018-01-08] MEDS ORDERED: ACETAMINOPHEN-CODEINE 300/30MG TAB PO PRN (19:15)
[2018-01-08] MEDS ORDERED: ACETAMINOPHEN 325 MG TAB PO PRN (19:15)
[2018-01-08] MEDS: METOPROLOL TARTRATE 25 MG TAB PO SCH (21:16)
[2018-01-08] MEDS: ACETAMINOPHEN-CODEINE 300/30MG TAB PO PRN (22:03)
[2018-01-09 04:07] VITALS: BP 126/58
[2018-01-09 07:30] VITALS: BP 111/56
[2018-01-09] MEDS: METOPROLOL TARTRATE 25 MG TAB PO SCH (08:45)
[2018-01-09] MEDS ORDERED: FUROSEMIDE 40 MG TABLET PO SCH (09:00)
[2018-01-09] MEDS ORDERED: SPIRONOLACTONE 25 MG TAB PO SCH (09:00)
[2018-01-09] MEDS ORDERED: ASPIRIN 81MG TAB.CHEW PO SCH (09:00)
[2018-01-09] MEDS ORDERED: LOSARTAN 50 MG TABLET PO SCH (09:00)
[2018-01-09] MEDS: ACETAMINOPHEN-CODEINE 300/30MG TAB PO PRN (09:15)
[2018-01-09] MEDS ORDERED: ATORVASTATIN CALCIUM 40 MG TABLET PO SCH (12:00)
== END 2018-01-09 11:13 | disposition home or self-care (01) ==
LOC: DAH 05:49 → 2CH 05:50
PROVIDERS: ADMIT Internal Medicine Critical Care Medicine; ATTEND Internal Medicine Critical Care Medicine
DX: I11.0 Hypertensive heart disease with heart failure (principal); I25.10 Atherosclerotic heart disease of native coronary artery without angina pectoris; E11.9 Type 2 diabetes mellitus without complications; E66.9 Obesity, unspecified; E78.5 Hyperlipidemia, unspecified; I25.5 Ischemic cardiomyopathy; I44.7 Left bundle-branch block, unspecified; I50.22 Chronic systolic (congestive) heart failure; J44.9 Chronic obstructive pulmonary disease, unspecified; Z87.891 Personal history of nicotine dependence; Z95.1 Presence of aortocoronary bypass graft; Z82.49 Family history of ischemic heart disease and other diseases of the circulatory system; Z83.3 Family history of diabetes mellitus; Z79.899 Other long term (current) drug therapy; Z79.82 Long term (current) use of aspirin; Z23 Encounter for immunization
CPT/HCPCS: 33225; 33249; 36415; 71045; 80048; 82948 ×2; 85025; 85610; 85730; A4600; A4606; C1769; C1882; C1895 ×2; C1900; G0008; G0378 ×29; J0690 ×2; J2175; J2250; J3490 ×2; J7030; Q2038; Q9967; 99156; 99157